=== PATIENT | female | born 2000 | race Caucasian/White ===

== ENCOUNTER 2025-09-19 12:26 | Inpatient (IN) | payer BC ==
[2025-09-23 20:50] VITALS: BMI 39.8
[2025-09-23] MEDS ORDERED: HYDROcodone/Acetaminophen 5/325 mg Tablet PO PRN ×2 (20:50)
[2025-09-23] MEDS ORDERED: Lidocaine 1% (PF) 30 ML VIAL SC PRN (20:50)
[2025-09-23] MEDS ORDERED: Ondansetron PF 4 MG/2 ML Vial IVP PRN (20:50)
[2025-09-23] MEDS ORDERED: hydrALAZINE 20 MG/ML VIAL SLOW IVP PRN (20:50)
[2025-09-23 21:13] LABS: Hematocrit 34.3 % (34.9-44.5); Hemoglobin 11.6 g/dL (12.0-15.5); Mean Corpuscular Hemoglobin 27.8 pg (27.0-33.0); Mean Corpuscular Volume 82.1 fL (81.6-98.3); Platelet Count 305 10x3/uL (150-450); Red Blood Cell (RBC) Count 4.18 10x6/uL (3.90-5.03); White Blood Cell (WBC) Count 10.93 10x3/uL (3.5-10.5)
[2025-09-23 23:14] LABS: Syphilis Antibody Index 0.05 S/CO (<1.00 Non-Reactive)
[2025-09-23 23:17] LABS: Hep B Surf Ag - L&D Non-Reactive S/CO (NonReactive)
[2025-09-24] MEDS: Oxytocin 30 units/NS 500 ML 500 ML IV SCH ×2 (05:04→17:32)
[2025-09-24] MEDS: fentaNYL/Ropivacaine Epidural 100 ML ONE (09:23)
[2025-09-24] MEDS ORDERED: diphenhydrAMINE 50 MG/ML VIAL IVP PRN (09:33)
[2025-09-24] MEDS ORDERED: Ondansetron PF 4 MG/2 ML Vial IVP PRN ×2 (09:33→19:56)
[2025-09-24] MEDS ORDERED: Acetaminophen 325 MG TAB PO PRN (09:33)
[2025-09-24] MEDS ORDERED: Communication Order-Pharmacy FS SCH (09:45)
[2025-09-24] MEDS ORDERED: fentaNYL 2 mcg/Ropivacaine 0.2% Epidural 100 ML CADD EPIDURAL SCH (09:45)
[2025-09-24] MEDS: Methylergonovine 0.2 MG/ML VIAL ONE (17:06)
[2025-09-24] MEDS: Tranexamic Acid 1,000 MG/10 ML VIAL ONE (17:09)
[2025-09-24] MEDS: Ibuprofen 800 MG TAB PO PRN (19:55)
[2025-09-24] MEDS ORDERED: Milk Of Magnesia 30 ML UDCUP PO PRN (19:56)
[2025-09-24] MEDS ORDERED: Lanolin Ointment 7 GM TUBE TOP PRN (19:56)
[2025-09-24] MEDS ORDERED: Preparation H Ointment 28 GM TUBE PR PRN (19:56)
[2025-09-24] MEDS ORDERED: diphenhydrAMINE 25 MG CAP PO PRN (19:56)
[2025-09-24] MEDS ORDERED: hydrALAZINE 20 MG/ML VIAL SLOW IVP PRN (19:56)
[2025-09-24] MEDS ORDERED: Bisacodyl 10 MG SUPP PR PRN (19:56)
[2025-09-24] MEDS: Carboprost 250 MCG/ML AMP ONE (20:00)
[2025-09-24] MEDS: Benzocaine-Menthol 82.5 ML CAN TOP PRN (20:04)
[2025-09-24] MEDS: HYDROcodone/Acetaminophen 5/325 mg Tablet PO PRN (20:04)
[2025-09-25] MEDS: HYDROcodone/Acetaminophen 5/325 mg Tablet PO PRN (03:23)
[2025-09-25] MEDS: Ibuprofen 800 MG TAB PO SCH (03:23)
[2025-09-25] MEDS ORDERED: Bupivacaine/Epinephrine 0.25% 30 ML VIAL ONE (07:00)
[2025-09-25] MEDS: Ferrous Sulfate 325 MG TAB PO SCH (08:28)
[2025-09-26 07:44] VITALS: BP 129/85; TEMP 98
== END 2025-09-26 13:00 | disposition home or self-care (01) | DRG 807 ==
LOC: CSHLD 09-23 19:56 → CSHPP 09-24 19:50
PROVIDERS: ADMIT Obstetrics & Gynecology; ATTEND Obstetrics & Gynecology
PROC: 10E0XZZ Delivery of Products of Conception, External Approach (ICD-10-PCS; principal; 2025-09-24)
PROC: 0KQM0ZZ Repair Perineum Muscle, Open Approach (ICD-10-PCS; 2025-09-24)
PROC: 0U7C7ZZ Dilation of Cervix, Via Natural or Artificial Opening (ICD-10-PCS; 2025-09-24)
PROC: 4A1HXCZ Monitoring of Products of Conception, Cardiac Rate, External Approach (ICD-10-PCS; 2025-09-24)
PROC: 10907ZC Drainage of Amniotic Fluid, Therapeutic from Products of Conception, Via Natural or Artificial Opening (ICD-10-PCS; 2025-09-24)
DX: O48.0 Post-term pregnancy (principal); Z37.0 Single live birth; Z3A.40 40 weeks gestation of pregnancy; O70.1 Second degree perineal laceration during delivery
CPT/HCPCS: 36415; 51702; 85027; 86780; 86850; 86900; 86901; 87340; J2210; J2590; J3010; J7120